=== PATIENT | male | born 1980 | race Caucasian/White ===

== ENCOUNTER 2024-02-09 15:15 | Outpatient (CLI) | payer BC, SELFPAY | END 2024-02-09 15:16 | disposition home or self-care (01) | LOC: FRMREF 15:16 | PROVIDERS: PCP Physician Assistant Medical; Visit Provider Physician Assistant Medical | DX: Z01.818 Encounter for other preprocedural examination (principal); D50.9 Iron deficiency anemia, unspecified; E11.9 Type 2 diabetes mellitus without complications; Z79.4 Long term (current) use of insulin | CPT/HCPCS: 80053; 83540; 83550; 87086; 87186 ==

== ENCOUNTER 2024-02-12 15:08 | Emergency (ER) | payer BC, SELFPAY ==
[2024-02-12] VITALS (55 sets, daily range): BP systolic 98–141; BP diastolic 71–106; PULSE 98–117; RESP 14–26; TEMP 36.8; O2SAT 88–99
--- NOTE | 2024-02-12 15:29 | ED.GENADULT ---
HPI - General Adult General Chief complaint: Shortness of Breath/Dyspnea Stated complaint: Low O2 Time Seen by Provider: 02/12/24 15:18 History of Present Illness HPI narrative: Patient is brought from his ECHO study where the tech was concerned with low sats. He is wheeled to exam room and room air sats are 85-88% on room air. He denies feeling SOB but reports he was doing pre-op with PCP who was concerned with lung and heart functioning and so ordered today's ECHO. He reports necrotizing infection involving lower abdomen to left upper leg and needs surgery for reconstruction through [facility] though this is on hold. 43-year-old man presenting to the emergency department on recommendation of Cardiology after being discovered to be in heart failure. I believe 10-20 % EF with normal valves was mentioned. He is attended by his father who admits that has been short of breath now for a month or 2. Sounds as though has escalated particularly over the course of today and some yesterday. No fever. Is actually coughing less now than he had been before. Was with his primary care provider couple of days ago for a preop for procedure for necrotizing fasciitis specifically reconstruction/grafting and a further cardiovascular evaluation of following preop. Underlying history of diabetes. Is not really having any chest pain. Does have an indwelling catheter. Regarding post operative wounds from excision/debridement for this necrotizing fasciitis is being visited every other day by a wound care nurse. Later as I am discussing our concerns he gets a little emotional noting ?I just want to feel better?. On recent hospitalization was diagnosed with pneumonia and completed course of Augmentin. Two days ago in clinic was initiated on ciprofloxacin with concern of urinary tract infection. Related Data Home Medications ?Medication ?Instructions ?Recorded ?Confirmed acetaminophen 325 mg tablet mg PO 01/18/24 01/18/24 insulin glargine 100 unit/mL (3 30 unit subcut QPM 01/18/24 01/18/24 mL) subcutaneous pen (Lantus Solostar U-100 Insulin) insulin lispro 100 unit/mL subcut 01/18/24 01/18/24 subcutaneous pen (Humalog KwikPen (U-100) Insulin) sennosides 8.6 mg tablet (Bianka-kenisha) mg PO 01/18/24 01/18/24 losartan 25 mg tablet 25 mg PO QDAY 02/09/24 02/09/24 Previous Rx's ?Medication ?Instructions ?Recorded blood-glucose meter,continuous #1 ea 01/18/24 (Dexcom G7 Fleet Manager/Dispatch) blood-glucose transmitter (Dexcom #1 ea 01/18/24 G6 Transmitter device) blood-glucose sensor (Dexcom G7 #3 ea 02/02/24 Sensor device) multivitamin-iron 9 mg-folic acid 1 tab PO QAM #100 tabs 02/03/24 400 mcg-calcium and minerals tablet (Thera-Brock Max-M) ciprofloxacin HCl 250 mg tablet 250 mg PO BID #10 tabs 02/09/24 oxycodone 5 mg tablet 5 mg PO QID PRN pain 1 week #24 02/09/24 tabs Allergies Allergy/AdvReac Type Severity Reaction Status Date / Time No Known Drug Allergies Allergy Verified 01/18/24 09:27 Review of Systems Status of ROS: Reports: 6 or more systems reviewed and unremarkable except as noted in History and below [facility] Surgical History History of nasal septoplasty ?Z98.890 - Other specified postprocedural states (ICD-10) Social History Smoking Status: Never smoker Little interest or pleasure in doing things: not at all Feeling down, depressed, or hopeless: not at all Exam Narrative: Exam Narrative: Pleasant. Cranial nerves 2-12 intact. Does appear mildly anxious or concerned. He is labored in his breathing and tachypneic. Oximetry noted at 86-88% on arrival. I can not appreciate JVD. Diminished breath sounds bilaterally in the lower 3rd of both lung [place]. Some crepitus above that. Heart is distant but appears to be tachycardic. Palpates tachycardic. Abdomen is soft and nontender. Overweight. He has large surgical wound without Maira inflammatory changes at the left inguinal/suprapubic area extending down the inner left thigh. Frank in place. Lower extremities with just shy of 2+ pitting edema. Nontender. Negative Homans. No inflammatory changes. Is moving all extremities without difficulty. Const: Vital Signs, click to edit/add: Vital Signs - 24 hr 02/12/24 15:23 02/12/24 15:29 02/12/24 15:51 Temperature 98.3 F Pulse Rate 112 H Pulse Rate [Pulse Oximeter] 113 H Respiratory Rate 24 Blood Pressure Blood Pressure [Ri ght Upper Arm] 141/88 H Pulse Oximetry 88 91 96 Oxygen Delivery Me thod Room Air Nasal Cannula Oxygen Flow Rate 2 02/12/24 16:00 02/12/24 16:01 02/12/24 16:02 Temperature Pulse Rate 110 H 109 H Pulse Rate [Pulse Oximeter] Respiratory Rate Blood Pressure 139/106 H Blood Pressure [Ri ght Upper Arm] Pulse Oximetry 97 96 96 Oxygen Delivery Me thod Oxygen Flow Rate 02/12/24 16:02 02/12/24 16:10 02/12/24 16:12 Temperature Pulse Rate 109 H 110 H Pulse Rate [Pulse Oximeter] Respiratory Rate Blood Pressure 131/96 H Blood Pressure [Ri ght Upper Arm] Pulse Oximetry 96 95 95 Oxygen Delivery Me thod Oxygen Flow Rate 02/12/24 16:15 02/12/24 16:20 02/12/24 16:20 Temperature Pulse Rate 107 H Pulse Rate [Pulse Oximeter] Respiratory Rate 22 Blood Pressure Blood Pressure [Ri ght Upper Arm] Pulse Oximetry 97 96 95 Oxygen Delivery Me thod Nasal Cannula Oxygen Flow Rate 1 02/12/24 16:30 02/12/24 16:40 02/12/24 16:45 Temperature Pulse Rate 108 H 107 H Pulse Rate [Pulse Oximeter] Respiratory Rate Blood Pressure Blood Pressure [Ri ght Upper Arm] Pulse Oximetry 95 93 95 Oxygen Delivery Me thod Oxygen Flow Rate 02/12/24 16:50 02/12/24 17:00 02/12/24 17:01 Temperature Pulse Rate 108 H 106 H Pulse Rate [Pulse Oximeter] Respiratory Rate Blood Pressure 134/92 H Blood Pressure [Ri ght Upper Arm] Pulse Oximetry 96 96 95 Oxygen Delivery Me thod Oxygen Flow Rate 02/12/24 17:02 02/12/24 17:10 02/12/24 17:15 Temperature Pulse Rate 106 H 106 H Pulse Rate [Pulse Oximeter] Respiratory Rate Blood Pressure Blood Pressure [Ri ght Upper Arm] Pulse Oximetry 94 95 95 Oxygen Delivery Me thod Oxygen Flow Rate 02/12/24 17:20 02/12/24 17:30 02/12/24 17:40 Temperature Pulse Rate 106 H Pulse Rate [Pulse Oximeter] Respiratory Rate 24 Blood Pressure Blood Pressure [Ri ght Upper Arm] Pulse Oximetry 95 95 93 Oxygen Delivery Me thod Oxygen Flow Rate 02/12/24 17:58 02/12/24 18:00 02/12/24 18:01 Temperature Pulse Rate 117 H 111 H 112 H Pulse Rate [Pulse Oximeter] Respiratory Rate Blood Pressure 131/96 H Blood Pressure [Ri ght Upper Arm] Pulse Oximetry 96 94 93 Oxygen Delivery Me thod Oxygen Flow Rate 02/12/24 18:02 02/12/24 18:06 02/12/24 18:09 Temperature Pulse Rate 110 H Pulse Rate [Pulse Oximeter] Respiratory Rate 26 H Blood Pressure Blood Pressure [Ri ght Upper Arm] Pulse Oximetry 93 93 Oxygen Delivery Me thod Nasal Cannula Oxygen Flow Rate 1 02/12/24 18:10 02/12/24 18:15 02/12/24 18:20 Temperature Pulse Rate 109 H Pulse Rate [Pulse Oximeter] Respiratory Rate Blood Pressure Blood Pressure [Ri ght Upper Arm] Pulse Oximetry 92 93 92 Oxygen Delivery Me thod Oxygen Flow Rate 02/12/24 18:30 02/12/24 18:31 02/12/24 18:40 Temperature Pulse Rate Pulse Rate [Pulse Oximeter] Respiratory Rate Blood Pressure Blood Pressure [Ri ght Upper Arm] Pulse Oximetry 94 93 94 Oxygen Delivery Me thod Oxygen Flow Rate 02/12/24 18:45 02/12/24 19:00 02/12/24 19:01 Temperature Pulse Rate 105 H 107 H 106 H Pulse Rate [Pulse Oximeter] Respiratory Rate Blood Pressure 124/87 Blood Pressure [Ri ght Upper Arm] Pulse Oximetry 94 95 95 Oxygen Delivery Me thod Oxygen Flow Rate 02/12/24 19:15 02/12/24 19:30 02/12/24 19:31 Temperature Pulse Rate 103 H 106 H 107 H Pulse Rate [Pulse Oximeter] Respiratory Rate Blood Pressure 122/85 Blood Pressure [Ri ght Upper Arm] Pulse Oximetry 95 95 94 Oxygen Delivery Me thod Oxygen Flow Rate Documenting provider has reviewed patient's vital signs: yes Course Vital Signs Vital signs: Initial Vital Signs Temperature 98.3 F 02/12/24 15:23 Temperature Source Temporal Artery Scan 02/12/24 15:23 Pulse Rate 113 H 02/12/24 15:23 Respiratory Rate 24 02/12/24 15:23 Blood Pressure 141/88 H 02/12/24 15:23 Blood Pressure Mean 105 02/12/24 15:23 Pulse Oximetry 88 02/12/24 15:23 Oxygen Delivery Method Room Air 02/12/24 15:23 Vital Signs Temperature 98.3 F 02/12/24 15:23 Pulse Rate 113 H 02/12/24 15:23 Respiratory Rate 24 02/12/24 15:23 Blood Pressure 141/88 H 02/12/24 15:23 Pulse Oximetry 88 02/12/24 15:23 Oxygen Delivery Method Room Air 02/12/24 15:23 Temperature 98.3 F 02/12/24 15:23 Pulse Rate 107 H 02/12/24 19:31 Respiratory Rate 26 H 02/12/24 18:06 Blood Pressure 122/85 02/12/24 19:31 Pulse Oximetry 94 02/12/24 19:31 Oxygen Delivery Method Nasal Cannula 02/12/24 18:06 Oxygen Flow Rate 1 02/12/24 18:06 Medications Administered Medications: Generic Name Dose Route Start Last Admin Trade Name Freq PRN Reason Stop Dose Admin Hydromorphone HCl 0.5 mg 02/12/24 19:38 02/12/24 19:48 Hydromorphone 0.5 Mg/0.5 Ml Inj IVP 02/12/24 19:39 0.5 mg ONCE ONE Administration Discontinued Medications Generic Name Dose Route Start Last Admin Trade Name Freq PRN Reason Stop Dose Admin Furosemide 40 mg 02/12/24 18:30 02/12/24 18:50 Furosemide 10 Mg/Ml Inj IVP 02/12/24 18:31 40 mg ONCE ONE Administration Medical Decision Making [facility] Narrative Medical decision making narrative: Having already identified heart failure with echocardiogram today, need to evaluate degree of likely pleural effusion. Review record does show chest x-ray couple days ago with small pleural effusion. Cardiomegaly as well. Possible has had large pulmonary thrombus or other ischemic cardiovascular event to contribute to events today. Look for evidence of pneumonia. I do not believe Mr. Delgado to be septic; however are collecting blood cultures. Pericarditis? Labs with elevated troponin not unexpected in the setting of rather elevated proBNP. Lactate is normal 1.5. Creatinine of 1.1 Chest x-ray reviewed by me shows cardiomegaly and small pleural effusion and pulmonary edema Radiology over-read as below Technique: Single view of the chest Comparison: Chest radiograph on February 09, 2024 Findings/impression : Similar- appearing cardiomegaly and slightly worsened pulmonary vascular congestion with stable small bilateral pleural effusions. Increased opacification seen in the right perihilar region and right lower lung zone compared to prior exam, may represent worsening pulmonary edema or atelectasis versus an acute infectious/ inflammatory process in the appropriate clinical context. No displaced fractures. D-dimer is elevated at nearly 2. Perhaps unexpected but still without cause other than hypertension; blood pressure is elevated but not terribly so here today. No evidence of pericarditis on his EKG. Will do CT of chest with PE protocol looking for potential pulmonary embolus. Did review these images. Did not see any clot burden Radiology over-read as below TECHNIQUE: Multiplanar CT pulmonary angiogram was performed after the administration of 95 mL of Isovue 370 intravenous contrast. COMPARISON: Same day chest radiograph. FINDINGS: Lower neck: The visualized thyroid is unremarkable. Cardiovascular: Contrast opacification of the pulmonary arterial tree is adequate. Heart size is borderline enlarged. Thoracic aorta and pulmonary artery are normal in caliber. No significant atherosclerotic calcifications of the aortic arch. Coronary arterial calcifications. No pulmonary embolus. Mediastinum and lymph nodes: Prominent subcentimeter mediastinal lymph nodes, likely reactive. Lungs: Mild pulmonary vascular congestion and interstitial edema, compatible with pulmonary edema. Mosaic attenuation pattern of opacification is nonspecific, and can be seen in the setting of atypical infection, edema or air trapping. Patchy ground-glass opacification involving the left upper lobe. Dependent atelectasis. Linear bandlike opacification of the lung bases bilaterally, likely subsegmental atelectasis and/or scarring. Airways: Trachea remains patent and midline. Mild diffuse peribronchial wall thickening. Pleura: Moderate-sized pleural effusions. No pneumothorax. Chest wall: Unremarkable. Prominent axillary lymph nodes that do not meet size criteria for lymphadenopathy. Bones: No acute osseous abnormalities. Mild degenerative changes of the thoracic spine. Upper abdomen: Unremarkable. No reflux of contrast material into the IVC. IMPRESSION: 1. No pulmonary embolus. No CT evidence of right heart strain. 2. Mild pulmonary vascular congestion and interstitial edema, with moderate-sized pleural effusions, compatible with pulmonary edema. Still requiring a little oxygen to maintain oxygen saturations in low 90s. With even minor exertion like transitioning he desats very quickly Will be given 40 mg IV Lasix. Have discussed with Cardiology at [place] who are accepting in transfer for tenuous cardiac status; heart failure of unclear etiology. Remains tachycardiac though with stable blood pressures. Requesting some medication for pain per usual. Will be handed off at change of shift pending transport to [place] Medical Records Medical records reviewed: Yes I reviewed the patient's medical records Lab Data Lab results reviewed: Yes I reviewed the patient's lab results Labs: Lab Results 02/12/24 02/12/24 02/12/24 Range/Units 15:48 15:53 16:00 WBC (4.50-11.00) K/uL RBC (4.30-5.90) m/uL Hgb (13.5-17.5) gm/dL Hct (37.0-53.0) % MCV (80-100) fL MCH (26-34) pg MCHC (32-36) gm/dL RDW Coeff of Сергей (11.5-15.5) % Plt Count (140-440) K/uL Neut % (Auto) (42.0-72.0) % Lymph % (Auto) (20-44) % [place] % (Auto) (0.0-11.0) % Eos % (Auto) (0.0-7.0) % Baso % (Auto) (0.0-3.0) % Neut # (Auto) (1.7-7.0) K/uL Lymph # (Auto) (0.90-2.90) K/uL [place] # (Auto) (0.00-0.90) K/UL Eos # (Auto) (0.00-0.50) K/uL Baso # (Auto) (0.00-0.30) K/uL Abs Immat Gran (auto) (0.00-0.30) K/uL Imm/Tot Granulo (auto) % D-Dimer Quant (PE/DVT) (0.00-0.50) ug/ml Sodium (135-149) mmol/L Potassium (3.6-5.1) mmol/L Chloride (96-114) mmol/L Carbon Dioxide (20-32) mmol/L Anion Gap (7-15) mEq/L BUN (5-24) mg/dL Creatinine (0.5-1.5) mg/dL Estimated Creat Clear Estimated GFR ml/min Glucose (60-115) mg/dL Lactate 1.5 (0.5-1.9) mmol/L Calcium (8.4-10.6) mg/dL Troponin I (0.01-0.04) ng/mL C-Reactive Protein (0.5-1.0) mg/dL NT-Pro-B Natriuret Pep pg/mL Urine Color (Yellow) Urine Appearance (Clear) Urine pH (5.0-8.5) Ur Specific [place] (1.000-1.030) Urine Protein (Negative) Urine Glucose (UA) (Negative) Urine Ketones (Negative) Urine Blood (Negative) Urine Nitrite (Negative) Urine Bilirubin (Negative) Urine Urobilinogen (0.2-1.0) Ur Leukocyte Esterase (Negative) Urine RBC (0-2) Urine WBC (0-5) Ur Squamous Epith Cells (None-Few) Urine Bacteria (None) SARS-CoV-2 (PCR) Negative SARS-CoV-2 (Negative) Influenza Type A (PCR) Negative PCR FLU A (Negative) Influenza Type B (PCR) Negative PCR FLU B (Negative) RSV (PCR) Negative PCR RSV (Negative) POC Troponin I 0.12 H (0.01-0.04) ng/ml 02/12/24 02/12/24 02/12/24 Range/Units 16:20 16:20 16:20 WBC 8.21 (4.50-11.00) K/uL RBC 3.74 L (4.30-5.90) m/uL Hgb 10.3 L (13.5-17.5) gm/dL Hct 33.9 L (37.0-53.0) % MCV 91 (80-100) fL MCH 28 (26-34) pg MCHC 30 L (32-36) gm/dL RDW Coeff of Сергей 13.9 (11.5-15.5) % Plt Count 317 (140-440) K/uL Neut % (Auto) 74.8 H (42.0-72.0) % Lymph % (Auto) 18.0 L (20-44) % [place] % (Auto) 5.2 (0.0-11.0) % Eos % (Auto) 1.6 (0.0-7.0) % Baso % (Auto) 0.4 (0.0-3.0) % Neut # (Auto) 6.10 (1.7-7.0) K/uL Lymph # (Auto) 1.50 (0.90-2.90) K/uL [place] # (Auto) 0.40 (0.00-0.90) K/UL Eos # (Auto) 0.13 (0.00-0.50) K/uL Baso # (Auto) 0.03 (0.00-0.30) K/uL Abs Immat Gran (auto) 0.00 (0.00-0.30) K/uL Imm/Tot Granulo (auto) 0.0 % D-Dimer Quant (PE/DVT) 1.98 H (0.00-0.50) ug/ml Sodium 139 (135-149) mmol/L Potassium 4.3 (3.6-5.1) mmol/L Chloride 109 (96-114) mmol/L Carbon Dioxide 26 (20-32) mmol/L Anion Gap 4 L (7-15) mEq/L BUN 17 (5-24) mg/dL Creatinine 1.1 (0.5-1.5) mg/dL Estimated Creat Clear 92.22 Estimated GFR 85 ml/min Glucose 157 H (60-115) mg/dL Lactate (0.5-1.9) mmol/L Calcium 8.1 L (8.4-10.6) mg/dL Troponin I 0.09 H* Cancelled (0.01-0.04) ng/mL C-Reactive Protein 0.8 (0.5-1.0) mg/dL NT-Pro-B Natriuret Pep 7040 Cancelled pg/mL Urine Color (Yellow) Urine Appearance (Clear) Urine pH (5.0-8.5) Ur Specific [place] (1.000-1.030) Urine Protein (Negative) Urine Glucose (UA) (Negative) Urine Ketones (Negative) Urine Blood (Negative) Urine Nitrite (Negative) Urine Bilirubin (Negative) Urine Urobilinogen (0.2-1.0) Ur Leukocyte Esterase (Negative) Urine RBC (0-2) Urine WBC (0-5) Ur Squamous Epith Cells (None-Few) Urine Bacteria (None) SARS-CoV-2 (PCR) (Negative) Influenza Type A (PCR) (Negative) Influenza Type B (PCR) (Negative) RSV (PCR) (Negative) POC Troponin I (0.01-0.04) ng/ml 02/12/24 Range/Units 16:30 WBC (4.50-11.00) K/uL RBC (4.30-5.90) m/uL Hgb (13.5-17.5) gm/dL Hct (37.0-53.0) % MCV (80-100) fL MCH (26-34) pg MCHC (32-36) gm/dL RDW Coeff of Сергей (11.5-15.5) % Plt Count (140-440) K/uL Neut % (Auto) (42.0-72.0) % Lymph % (Auto) (20-44) % [place] % (Auto) (0.0-11.0) % Eos % (Auto) (0.0-7.0) % Baso % (Auto) (0.0-3.0) % Neut # (Auto) (1.7-7.0) K/uL Lymph # (Auto) (0.90-2.90) K/uL [place] # (Auto) (0.00-0.90) K/UL Eos # (Auto) (0.00-0.50) K/uL Baso # (Auto) (0.00-0.30) K/uL Abs Immat Gran (auto) (0.00-0.30) K/uL Imm/Tot Granulo (auto) % D-Dimer Quant (PE/DVT) (0.00-0.50) ug/ml Sodium (135-149) mmol/L Potassium (3.6-5.1) mmol/L Chloride (96-114) mmol/L Carbon Dioxide (20-32) mmol/L Anion Gap (7-15) mEq/L BUN (5-24) mg/dL Creatinine (0.5-1.5) mg/dL Estimated Creat Clear Estimated GFR ml/min Glucose (60-115) mg/dL Lactate (0.5-1.9) mmol/L Calcium (8.4-10.6) mg/dL Troponin I (0.01-0.04) ng/mL C-Reactive Protein (0.5-1.0) mg/dL NT-Pro-B Natriuret Pep pg/mL Urine Color Yellow (Yellow) Urine Appearance Clear (Clear) Urine pH 5.5 (5.0-8.5) Ur Specific [place] 1.010 (1.000-1.030) Urine Protein Negative (Negative) Urine Glucose (UA) Negative (Negative) Urine Ketones Negative (Negative) Urine Blood Trace-intact A (Negative) Urine Nitrite Positive A (Negative) Urine Bilirubin Negative (Negative) Urine Urobilinogen 0.2 (0.2-1.0) Ur Leukocyte Esterase Trace A (Negative) Urine RBC 0-2 (0-2) Urine WBC 0-2 (0-5) Ur Squamous Epith Cells None (None-Few) Urine Bacteria None (None) SARS-CoV-2 (PCR) (Negative) Influenza Type A (PCR) (Negative) Influenza Type B (PCR) (Negative) RSV (PCR) (Negative) POC Troponin I (0.01-0.04) ng/ml ECG Data Attestation: I personally reviewed and interpreted this ECG as follows: (Tachycardia. Sinus rhythm. Low-voltage) Critical Care Time Critical Care Time Critical Care Time: Yes Attestation: The patient required my highest level preparedness to intervene emergently and I personally spent this critical care time directly and personally managing the patient. This critical care time included: Obtaining a history; Examining the patient; Pulse oximetry; Ordering and reviewing of studies; Arranging urgent treatment with development of a management plan; Evaluation of patients response to treatment; Frequent reassessment discussions with other providers. This critical care time was performed to assess and manage the high probability of imminent life-threatening deterioration that could result in multiorgan failure. It was exclusive of separate billable procedures and treating other patients and teaching time. Total Critical Care Time in Minutes: 60 Discharge Plan Discharge Clinical Impression: Heart failure, Pleural effusion Patient Disposition: Xfer [facility] Discharge Location: [facility] Condition: Stable Prescriptions: No Action insulin glargine [Lantus Solostar U-100 Insulin] 100 unit/mL (3 mL) insulin pen 30 unit subcut QPM insulin lispro [Humalog KwikPen Insulin] 100 unit/mL insulin pen subcut acetaminophen 325 mg tablet PO sennosides [Bianka-kenisha] 8.6 mg tablet PO (DME) Dexcom G6 Transmitter Device See Rx Instructions .Route Qty: 1 0RF Rx Instructions: As directed (DME) Dexcom G7 Fleet Manager/Dispatch Misc See Rx Instructions .Route Qty: 1 0RF Rx Instructions: As directed losartan 25 mg tablet 25 mg PO QDAY oxycodone 5 mg tablet 5 mg PO QID PRN (Reason: pain) 7 Days Qty: 24 0RF ciprofloxacin HCl 250 mg tablet 250 mg PO BID Qty: 10 0RF (DME) Dexcom G7 Sensor Device See Rx Instructions .Route Qty: 3 3RF Rx Instructions: As directed Thera-Brock Max-M 9 mg iron-400 mcg tablet 1 tab PO QAM Qty: 100 3RF Stand Alone Forms: MyHealth Info Instructions
--- NOTE | 2024-02-12 15:47 | CRLHL7_ITS ---
For Patients: As a result of the Cures Act, medical imaging exams and procedure reports are released immediately into your electronic medical record. You may view this report before your referring provider. If you have questions, please contact your health care provider. Indication: LOW O2 ,SOB Technique: Single view of the chest Comparison: Chest radiograph on February 09, 2024 Findings/impression : Similar-appearing cardiomegaly and slightly worsened pulmonary vascular congestion with stable small bilateral pleural effusions. Increased opacification seen in the right perihilar region and right lower lung zone compared to prior exam, may represent worsening pulmonary edema or atelectasis versus an acute infectious/inflammatory process in the appropriate clinical context. No displaced fractures. Dictated by Chuck Sepulveda MD @ 02/12/2024 4:15:00 PM (Electronically Signed)
[2024-02-12 16:03] LABS: Lactate* 1.5 mmol/L (0.5-1.9)
[2024-02-12 16:09] LABS: Troponin, Point-of-Care* 0.12 ng/ml (0.01-0.04)
[2024-02-12 16:35] LABS: Appearance Urine Clear (Clear); Bilirubin Urine Negative (Negative); Blood Urine Trace-intact (Negative); Color Urine Yellow (Yellow); Glucose Urine Negative (Negative); Ketones Urine Negative (Negative); Leukocyte Esterase Urine Trace (Negative); Nitrite Urine Positive (Negative); Protein Urine Negative (Negative); Urobilinogen Urine 0.2 (0.2-1.0); pH Urine 5.5 (5.0-8.5)
[2024-02-12 16:45] LABS: Basophils Absolute Auto 0.03 K/uL (0.00-0.30); Basophils Percent Auto 0.4 % (0.0-3.0); Eosinophils Absolute Auto 0.13 K/uL (0.00-0.50); Eosinophils Percent Auto 1.6 % (0.0-7.0); Hematocrit 33.9 % (37.0-53.0); Hemoglobin* 10.3 gm/dL (13.5-17.5); Mean Corpuscular HGB Conc 30 gm/dL (32-36); Mean Corpuscular Hemoglobin 28 pg (26-34); Mean Corpuscular Volume 91 fL (80-100); Monocytes Percent Auto 5.2 % (0.0-11.0); Neutrophils Percent Auto 74.8 % (42.0-72.0); Platelet Count* 317 K/uL (140-440); RDW Coefficient of Variation % 13.9 % (11.5-15.5); Red Blood Count 3.74 m/uL (4.30-5.90); White Blood Count* 8.21 K/uL (4.50-11.00)
[2024-02-12 16:47] LABS: Chloride* 109 mmol/L (96-114); Sodium* 139 mmol/L (135-149)
[2024-02-12 16:48] LABS: Potassium* 4.3 mmol/L (3.6-5.1)
[2024-02-12 16:50] LABS: Creatinine* 1.1 mg/dL (0.5-1.5); Est. Creatinine Clearance* 92.22; Estimated Glomerular Filt Rate 85 ml/min
[2024-02-12 16:51] LABS: RBC Urine 0-2 (0-2); WBC Urine 0-2 (0-5)
[2024-02-12 16:51] LABS: Anion Gap 4 mEq/L (7-15); Blood Urea Nitrogen* 17 mg/dL (5-24); Calcium* 8.1 mg/dL (8.4-10.6); Carbon Dioxide* 26 mmol/L (20-32); Glucose* 157 mg/dL (60-115)
[2024-02-12 16:54] LABS: C Reactive Protein* 0.8 mg/dL (0.5-1.0)
[2024-02-12 16:59] LABS: Slide Review Reflex No
[2024-02-12 17:08] LABS: PCR FLU A Negative PCR FLU A (Negative); PCR FLU B Negative PCR FLU B (Negative); PCR RSV Negative PCR RSV (Negative); SARS PCR* Negative SARS-CoV-2 (Negative)
[2024-02-12 17:10] LABS: NT Pro B Type NatriureticPept* 7040 pg/mL; Troponin I* 0.09 ng/mL (0.01-0.04)
[2024-02-12 17:14] LABS: D Dimer Quantitative* 1.98 ug/ml (0.00-0.50)
--- NOTE | 2024-02-12 17:32 | CRLHL7_ITS ---
For Patients: As a result of the 21st Century Cures Act, medical imaging exams and procedure reports are released immediately into your electronic medical record. You may view this report before your referring provider. If you have questions, please contact your health care provider. INDICATION: Hypoxia. TECHNIQUE: Multiplanar CT pulmonary angiogram was performed after the administration of 95 mL of Isovue 370 intravenous contrast. COMPARISON: Same day chest radiograph. FINDINGS: Lower neck: The visualized thyroid is unremarkable. Cardiovascular: Contrast opacification of the pulmonary arterial tree is adequate. Heart size is borderline enlarged. Thoracic aorta and pulmonary artery are normal in caliber. No significant atherosclerotic calcifications of the aortic arch. Coronary arterial calcifications. No pulmonary embolus. Mediastinum and lymph nodes: Prominent subcentimeter mediastinal lymph nodes, likely reactive. Lungs: Mild pulmonary vascular congestion and interstitial edema, compatible with pulmonary edema. Mosaic attenuation pattern of opacification is nonspecific, and can be seen in the setting of atypical infection, edema or air trapping. Patchy ground-glass opacification involving the left upper lobe. Dependent atelectasis. Linear bandlike opacification of the lung bases bilaterally, likely subsegmental atelectasis and/or scarring. Airways: Trachea remains patent and midline. Mild diffuse peribronchial wall thickening. Pleura: Moderate-sized pleural effusions. No pneumothorax. Chest wall: Unremarkable. Prominent axillary lymph nodes that do not meet size criteria for lymphadenopathy. Bones: No acute osseous abnormalities. Mild degenerative changes of the thoracic spine. Upper abdomen: Unremarkable. No reflux of contrast material into the IVC. IMPRESSION: 1. No pulmonary embolus. No CT evidence of right heart strain. 2. Mild pulmonary vascular congestion and interstitial edema, with moderate-sized pleural effusions, compatible with pulmonary edema. Please note that all CT scans at this facility use dose modulation, iterative reconstruction, and/or weight-based dosing when appropriate to reduce radiation dose to as low as reasonably achievable. Dictated by Lb Winter MD @ 02/12/2024 6:16:53 PM (Electronically Signed)
[2024-02-12] MEDS: FUROSEMIDE 10 MG/ML inj 40 MG IVP ×2 (18:50→21:33)
[2024-02-12] MEDS: HYDROmorphone 0.5 mg/0.5 ml inj IVP (19:48)
[2024-02-12 23:29] LABS: Glucose, Point-of-Care* 120 mg/dl (60-115)
[2024-02-13] VITALS: BP 104/73; PULSE 103; RESP 14; O2SAT 94
[2024-02-13 00:30] VITALS: PULSE 95; O2SAT 97
[2024-02-13 00:49] VITALS: BP 103/76; PULSE 97; RESP 14; TEMP 36.1; O2SAT 97
[2024-02-13 00:50] VITALS: PULSE 100; O2SAT 96
[2024-02-13 01:00] VITALS: PULSE 98; O2SAT 95
[2024-02-13 01:01] VITALS: BP 101/76; PULSE 101; RESP 16; O2SAT 95
== END 2024-02-13 01:11 | disposition short-term general hospital (02) ==
PROVIDERS: Emergency Provider Family Medicine; PCP Physician Assistant Medical
DX: I50.9 Heart failure, unspecified (principal); J90 Pleural effusion, not elsewhere classified
CPT/HCPCS: 36415; 71045; 71275; 80048; 81001; 82947; 82962; 83605; 83880; 84484; 85025; 85379; 86140; 87040; 87086; 87631; 93005; 93306; 94761; 99284; 99285; 99291; J1170; J1940; Q9967

== ENCOUNTER 2024-02-13 01:14 | Outpatient (CLI) | payer BC, SELFPAY | END 2024-02-13 01:15 | disposition home or self-care (01) | LOC: AMB 02-14 08:47 | PROVIDERS: PCP Physician Assistant Medical; Visit Provider Family Medicine | DX: I50.9 Heart failure, unspecified (principal) | CPT/HCPCS: A0425; A0427 ==

== ENCOUNTER 2024-02-26 12:04 | Outpatient (CLI) | payer BC, SELFPAY ==
[2024-02-29 00:28] LABS: C-Peptide, Serum or Plasma 3.8 ng/mL (0.5-3.3)
== END 2024-02-26 12:05 | disposition home or self-care (01) ==
PROVIDERS: PCP Physician Assistant Medical; Visit Provider Family Medicine
DX: E11.9 Type 2 diabetes mellitus without complications (principal); D50.9 Iron deficiency anemia, unspecified; I50.9 Heart failure, unspecified; Z79.4 Long term (current) use of insulin
CPT/HCPCS: 84681

== ENCOUNTER 2024-03-09 14:13 | Outpatient (REF) | payer BC, SELFPAY ==
[2024-03-09 15:14] LABS: Albumin* 4.1 g/dL (3.3-5.0); Chloride* 102 mmol/L (96-114); Sodium* 139 mmol/L (135-149)
[2024-03-09 15:15] LABS: Potassium* 4.1 mmol/L (3.6-5.1)
[2024-03-09 15:17] LABS: Anion Gap 10 mEq/L (7-15); Carbon Dioxide* 27 mmol/L (20-32); Creatinine* 1.1 mg/dL (0.5-1.5); Estimated Glomerular Filt Rate 85 ml/min
[2024-03-09 15:18] LABS: Blood Urea Nitrogen* 30 mg/dL (5-24); Calcium* 9.4 mg/dL (8.4-10.6); Glucose* 235 mg/dL (60-115); Phosphorus* 5.2 mg/dL (2.5-4.5)
[2024-03-09 15:20] LABS: Basophils Absolute Auto 0.06 K/uL (0.00-0.30); Basophils Percent Auto 0.8 % (0.0-3.0); Eosinophils Absolute Auto 0.27 K/uL (0.00-0.50); Eosinophils Percent Auto 3.8 % (0.0-7.0); Hematocrit 37.7 % (37.0-53.0); Immature Granulocytes Abs Auto 0.01 K/uL (0.00-0.30); Immature Granulocytes Pct Auto 0.1 %; Lymphocytes Absolute Auto 1.72 K/uL (0.90-2.90); Mean Corpuscular HGB Conc 32 gm/dL (32-36); Mean Corpuscular Hemoglobin 27 pg (26-34); Mean Corpuscular Volume 84 fL (80-100); Monocytes Percent Auto 5.3 % (0.0-11.0); Neutrophils Absolute Auto 4.74 K/uL (1.7-7.0); Platelet Count* 305 K/uL (140-440); RDW Coefficient of Variation % 13.8 % (11.5-15.5); Red Blood Count 4.49 m/uL (4.30-5.90); White Blood Count* 7.18 K/uL (4.50-11.00)
[2024-03-09 15:21] LABS: Slide Review Reflex No
== END 2024-03-09 14:14 | disposition home or self-care (01) ==
LOC: NPINS 14:13
PROVIDERS: PCP Physician Assistant Medical; Visit Provider Internal Medicine Nephrology
DX: N17.9 Acute kidney failure, unspecified (principal); D63.1 Anemia in chronic kidney disease; R80.8 Other proteinuria
CPT/HCPCS: 80069; 85025